=== PATIENT | female | born 1980 | race Caucasian/White ===

== ENCOUNTER 2022-03-15 08:47 | Day surgery (SDC) | payer OTHER ==
[~2022-03-15] VITALS: Ht 157.5 cm; Wt 98.6 kg
[~2022-03-15 08:47] MED LIST: COZAAR50 MG PO; LEVOTHYROXINE88 MC1 PO; SPIRONOLACTONE25 MG PO
--- NOTE | 2022-03-15 13:57 | NUR ---
03/15/22 1357 Mahogany Barnes 1343 PT ARRIVED IN PACU NON RESPONSIVE TO NOXIOUS STIMULI WITH OPA IN PLACE. CHIN LIFT HELD BY RN. 1347 PT REACTIVE. OPA REMOVED. 1355 C/O ABD PAIN 07/22. DECLINED PAIN MED WHEN OFFERED.
[2022-03-15] MEDS ORDERED: ACETAMINOPHEN500 MG PO (14:02)
[2022-03-15] MEDS ORDERED: PERCOCET 7.5-31 EACH PO (14:04)
[2022-03-15] MEDS ORDERED: MOTRIN IB200 MG PO (14:05)
--- NOTE | 2022-03-15 15:23 | NUR ---
1435: PATIENT BACK IN DAY SURGERY ROOM FROM PACU. RATES PAIN 5/10 IN RUQ ABDOMEN. 5 TROCAR SITE ON ABDOMEN WITH STERI STRIPS. EACH HAS SMALL AMOUNT OF RED DRAINAGE. IV SITE WNL. VS CHECKED. SCDs ON. AT BEDSIDE. CALL LIGHT WITHIN REACH. 1445: PATIENT ASSISTED TO SITE AT SIDE OF BED. PATIENT ATTEMPTED TO WALK TO BATHROOM, BUT STATED LEGS WERE WEAK. PATIENT ASSISTED BACK TO SITE AT SIDE OF BED. THEN PATIENT ASSISTED TO TRANSFER TO BEDSIDE COMMODE. VOID WITHOUT DIFFICULTY. PATIENT ASSISTED TO TRANSFER BACK TO BED. GIVEN CRACKERS AND ICE WATER. AT BEDSIDE. CALL LIGHT WITHIN REACH.
--- NOTE | 2022-03-15 15:26 | NUR ---
1512: PATIENT TOLERATED CRACKERS. MEDICATED FOR PAIN WITH 1 TAB OF PERCOCET. NO OTHER NEEDS AT THIS TIME.
--- NOTE | 2022-03-15 16:14 | NUR ---
1545: VS CHECKED. PATIENT STATES PAIN "GETTING A LITTLE BETTER." C/O SOME NAUSEA. ABDOMINAL SITES WITH SMALL AMOUNT OF RED DRAINAGE. AT BEDSIDE. CALL LIGHT WITHIN REACH. 1608: DISCHARGE INSTRUCTIONS GIVEN TO PATIENT AND . PATIENT STATES SHE WOULD LIKE TO GO HOME BUT REQUESTS [place] MEDICATION FOR HOME. PATIENT ASSISTED OOB AND TO WALK AROUND ROOM. GAIT STEADY. PATIENT GETTING DRESSED WITH HELP FROM .
--- NOTE | 2022-03-15 16:42 | NUR ---
5495: PATIENT TOLERATED GETTING DRESSED. STILL WISHES TO GO HOME. IV ZOFRAN GIVEN. THEN IV DC'D WNL. TIP INTACT. DRESSING APPLIED. WAITING FOR TAKE HOME PRESCRIPTION FROM DR DIEGO. AT BEDSIDE.
--- NOTE | 2022-03-17 11:16 | PATH ---
[facility] [address] [facility] [place], [place] [address] Signed SPECIMEN(S): A GALLBLADDER WITH STONES SPECIMEN SOURCE: A. GALLBLADDER WITH STONES CLINICAL HISTORY: Right upper quadrant FINAL PATHOLOGIC DIAGNOSIS: Gallbladder with stones, cholecystectomy: - Cholelithiasis and cholesterolosis. DF:llc:C2NR MICROSCOPIC EXAMINATION: Histologic sections of all submitted blocks are examined by light microscopy. These findings, together with the gross examination, support the pathologic diagnosis. GROSS DESCRIPTION: The specimen, labeled "Ventura Manning," and designated on the requisition "gallbladder with stones," is received in formalin and consists of: Specimen: Previously opened gallbladder. Dimensions: 6.4 x 2.5 x 2.0 cm. Serosa: Violaceous and smooth. Cystic Duct: Inked, unobstructed. Calculi: Multiple yellow-green spherical stones, aggregate measurement 2.5 x 2.0 x 0.7 cm. Mucosa: Green and velvety with yellow flecking. Wall thickness: 0.4 cm. Lymph node: No pericystic lymph nodes are grossly identified. Additional: None. Respiratory Coordinator sections are submitted in cassette (A1). FB (under the direct supervision of a pathologist) The Gross Description was prepared using a voice recognition system. The report was reviewed for accuracy; however, sound-alike word errors, addition and/or deletions may occur. If there is any question about this report, please contact Client Services. PERFORMING LABORATORY: The technical component was performed by [facility], [address] [place] [id number] (CLIA# [id number]). Professional interpretation was PATIENT NAME: RAHUL MANNING PATHOLOGY DATE OF : 76 REPORT #: [id number] PHYSICIAN: DOC PATHOLOGY PCP: KI PATTERSON REPORT IS CONFIDENTIAL AND NOT TO BE RELEASED WITHOUT AUTHORIZATION [facility] [address] [facility] [place] [address] Signed performed by [facility], [facility], [facility] [place] [address] (CLIA#: [id number]) Diagnostician: Selwyn Wells DO Pathologist Electronically Signed 03/17/2022 Copies: ~ PATIENT NAME: RAHUL MANNING PATHOLOGY DATE OF : [birth year] REPORT #: [id number] PHYSICIAN: DOC PATHOLOGY PCP: KI PATTERSON REPORT IS CONFIDENTIAL AND NOT TO BE RELEASED WITHOUT AUTHORIZATION
--- NOTE | 2022-03-17 13:21 | OR ---
[facility] [address] [place], [place] [address] Signed DATE OF OPERATION: 03/15/2022 SURGEON: Clementine Diego MD PREOPERATIVE DIAGNOSES: 1. Chronic calculous cholecystitis. 2. Obesity. POSTOPERATIVE DIAGNOSIS: 1. Chronic calculous cholecystitis. 2. Obesity. PROCEDURE: 1. Laparoscopic cholecystectomy with intraoperative cholangiogram. 2. Surgeon-directed fluoroscopy. ANESTHESIA: General endotracheal; Clementine Mak CRNA and local 10 mL of 0.25% Marcaine with epinephrine. INDICATION: This 42-year-old obese white woman is a patient of IVANIA Ni. She has had symptoms highly typical of biliary disease for quite some time. A gallbladder ultrasound was performed on February 17, 2022, at [facility], confirming multiple gallstones in the gallbladder. 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 She is admitted at this time to undergo cholecystectomy preferred by laparoscopic approach. The risks of bleeding, infection, bile duct injury, need for open procedure and other unforeseen complications was reviewed in detail. She understands and wished to proceed. FINDINGS: The gallbladder initially appeared to be rather linear and narrow, but ultimately was found to be partially intrahepatic and that was the basis of that appearance. The cystic duct was relatively wide and was ultimately a well-developed. Cholangiogram showed no sign of filling defect in the common duct. Proximal biliary tree filling was obscured by some spilled contrast. The liver itself was normal. The gallbladder once excised had multiple rounded cholesterol gallstones, 5- 8 mm in size within its lumen. There was no sign of neoplasm. She tolerated the procedure well. Electronically Signed By: CLEMENTINE DIEGO MD 03/17/22 1321 PATIENT NAME: RAHUL MANNING OPERATIVE REPORT DATE OF : 76 REPORT #: [id number] PHYSICIAN: CLEMENTINE DIEGO MD PCP: KI PATTERSON REPORT IS CONFIDENTIAL AND NOT TO BE RELEASED WITHOUT AUTHORIZATION [facility] [address] [place], [place] [address] Signed DESCRIPTION OF PROCEDURE: The patient was brought to the operating room, given a general endotracheal anesthetic. Preoperative antibiotic Ancef was given. Sequential compression device stockings used and heparin subcutaneously administered. The abdomen was prepared with a chlorhexidine solution and draped sterilely. An infraumbilical incision was made and using an open Sivakumar cannula technique. Pneumoperitoneum achieved to a level of 14 mmHg of carbon dioxide gas. Intra-abdominal inspection showed no sign of ascites or carcinomatosis. The fatty omental changes were noted and the omentum was draped over the liver obscuring the gallbladder. Three additional trocars were placed in usual configuration in the subxiphoid, right midclavicular, and right anterior axillary line. The gallbladder was ultimately evaluated and found to be chronically inflamed and relatively small, though linear and narrow in its appearance initially. The gallbladder was elevated cephalad and retracted laterally. Given her obesity and an additional 5 mm trocar was placed and a 5 mm fan retractor placed. This allowed for good visualization in the region of the infundibulum of the gallbladder. The infundibulum was grasped with a laparoscopic instrument, retracted laterally and using blunt electrocautery dissection in a very meticulous way dissection was undertaken. An enlarged and inflamed pericholecystic lymph node was identified as well. With various manipulations, it became clear that the gallbladder itself was somewhat intrahepatic and on that basis, dissection more proximally was undertaken defining better. Ultimately, the cystic duct was well identified and was relatively generous in its diameter. Once the cystic artery was doubly clipped and divided and the gallbladder cystic duct junction well-defined, a clip was applied across the gallbladder, cystic duct junction and a transverse choledochotomy made in the cystic duct. Somewhat mucoid bilious fluid was noted upon retrograde milking of the duct. Several attempts at cholangiography were unsuccessful due to the edematous nature of the infundibulum and cystic duct. Ultimately, the catheter was insinuated into the cystic duct. An intraoperative cholangiography undertaken more fully. Good flow of contrast was noted into the biliary tree with prompt emptying into the duodenum. Retrograde filling was somewhat delayed and additionally obscured by some spilled contrast in the insertion site of the catheter, but there was no sign of biliary anomaly or proximal ductal injury or anything of that sort. Catheter was removed and the cystic duct was triply clipped and divided, taking special care to assure that the clips completely occluded the cystic duct. The gallbladder was dissected free in a retrograde fashion using electrocautery. Gallbladder was placed in an Endobag and extracted through the infraumbilical port site opened on the back table and found to have multiple round cholesterol type stones about 5- 8 mm in size Electronically Signed By: CLEMENTINE DIEGO MD 03/17/22 1321 PATIENT NAME: RAHUL MANNING OPERATIVE REPORT DATE OF : 76 REPORT #: [id number] PHYSICIAN: CLEMENTINE DIEGO MD PCP: KI PATTERSON REPORT IS CONFIDENTIAL AND NOT TO BE RELEASED WITHOUT AUTHORIZATION [address] [address] Signed generally. There was no sign of neoplasm of mucosa. Irrigation was undertaken in subhepatic space. There was no sign of bleeding, bile leak or other problem. The trocars removed under direct visualization showing no sign of bleeding. The infraumbilical incision site was reapproximated with interrupted 2-0 Vicryl suture in the fascial layer as well as an additional security with 0 PDS suture in a running configuration. A 10 mL of 0.25% Marcaine with epinephrine injected locally. The wounds were irrigated with saline solution. Skin closed with interrupted 3-0 Vicryl after hemostasis assured with electrocautery. Steri-Strips were applied. The patient was ultimately extubated and transferred to the recovery room in good condition having suffered no complications. Sponge, needle, and instrument counts were correct x3. MD AMERICA Khan/RINKU /[id number] cc: IVANIA Ni Copies: KI PATTERSON ~ Electronically Signed By: CLEMENTINE DIEGO MD 03/17/22 1321 PATIENT NAME: RAHUL MANNING OPERATIVE REPORT DATE OF : [birth year] REPORT #: [id number] PHYSICIAN: CLEMENTINE DIEGO MD PCP: KI PATTERSON REPORT IS CONFIDENTIAL AND NOT TO BE RELEASED WITHOUT AUTHORIZATION
== END 2022-03-15 16:50 | disposition home or self-care (01) ==
LOC: DS 08:47
PROVIDERS: ATTEND Surgery
PROC: BF10YZZ Fluoroscopy of Bile Ducts using Other Contrast (ICD-10-PCS; 2022-03-15)
PROC: 0FT44ZZ Resection of Gallbladder, Percutaneous Endoscopic Approach (ICD-10-PCS; principal; 2022-03-15 11:00)
DX: K80.10 Calculus of gallbladder with chronic cholecystitis without obstruction (principal); I10 Essential (primary) hypertension; G47.30 Sleep apnea, unspecified; E06.3 Autoimmune thyroiditis; E66.01 Morbid (severe) obesity due to excess calories; E03.9 Hypothyroidism, unspecified; Z98.890 Other specified postprocedural states; Z88.0 Allergy status to penicillin; Z68.39 Body mass index [BMI] 39.0-39.9, adult
CPT/HCPCS: 00790; 74300; J0131; J0330; J0690; J1100; J1644; J1790; J1885; J2250; J2405; J2704; J2765; J3010; J7121; Q9967